=== PATIENT | female | born 1940 | race Two or more races ===

== ENCOUNTER 2022-12-23 05:20 | Emergency (ER) | payer MEDICARE, OTHER ==
[~2022-12-23] VITALS: Ht 154.9 cm; Wt 49.9 kg
--- NOTE | 2022-12-23 05:28 | NUR ---
[facility] FROM [facility] FOR LOW BACK PAIN W/ HX OF CHRONIC LOW BACK PAIN. COMPLAINTS OF LUMBAR PAIN 8/10 PAIN SCALE WITH NUMBNESS AND TINGLING SENSATION ON LT LEG. PT IS A/OX4. ANXIOUS. SHE MENTIONED THAT SHE SLIPPED 4 DAYS AGO AT THE FACILITY HITTING HER SACRAL AREA. ATTACHED TO MONITOR. V/S CHECKED.
--- NOTE | 2022-12-23 05:45 | NUR ---
SEEN BY DR. GARCIA AT BEDSIDE.
[2022-12-23] MEDS ORDERED: TRAMADOL HCL 50 MG TABLET PO ONE (06:00)
[2022-12-23] MEDS ORDERED: TRAMADOL HCL 50 MG TABLET ONE (06:04)
--- NOTE | 2022-12-23 06:15 | NUR ---
ASSISTED PT TO RESTROOM. URINE SPECIMEN COLLECTED AND SENT TO LAB.
--- NOTE | 2022-12-23 06:19 | NUR ---
HOME OFFICE CLAIMS EXAMINER AT BEDSIDE
--- NOTE | 2022-12-23 06:33 | NUR ---
SHEETER HELPER AT BEDSIDE
--- NOTE | 2022-12-23 06:36 | NUR ---
PATIENT REFUSED BLOOD DRAWN BY SIZING MACHINE OPERATOR. EXPLAINED RISK AND BENEFITS OF LAB. STILL PATIENT DOESN'T WANT BLOOD DRAWN. DR GARCIA MADE AWARE.
--- NOTE | 2022-12-23 06:38 | NUR ---
SEEN BY DR GARCIA AT BEDSIDE
[2022-12-23 06:56] LABS: BILIRUBIN,URINE NEGATIVE (NEGATIVE); COLOR,URINE YELLOW (YELLOW); LEUKOCYTE ESTERASE ,URINE NEGATIVE (NEGATIVE); NITRITE, URINE NEGATIVE (NEGATIVE); PROTEIN,URINE NEGATIVE (NEGATIVE); UGLUCOSE NEGATIVE (NEGATIVE); UROBILINOGEN,URINE 0.2 EU/dL (0.2)
--- NOTE | 2022-12-23 07:09 | NUR ---
[facility] ETA: 30-45 MIN
--- NOTE | 2022-12-23 08:42 | NUR ---
REPORT GIVEN TO TRANSPORT EMT. STABLE CONDITION.
[2022-12-23 08:58] VITALS: BP 135/82
== END 2022-12-23 08:59 ==
LOC: ER 05:22
DX: M54.50 Low back pain, unspecified (principal); G89.29 Other chronic pain; I10 Essential (primary) hypertension; D64.9 Anemia, unspecified; F41.9 Anxiety disorder, unspecified; F32.A Depression, unspecified; Z86.73 Personal history of transient ischemic attack (TIA), and cerebral infarction without residual deficits
CPT/HCPCS: 72100-TC; 87086-TC